=== PATIENT | female | born 1985 | race Caucasian/White ===

== ENCOUNTER → 2016-08-31 | Outpatient (CLI) | payer OTHER ==
[~2016-08-31] MED LIST: CHOL100010 PO; CYM/30 PO; GADAVIST IV PRN; GLUCAGON FOR INJ 1 MG VIAL IM SCH; NURSING VERBAL MED ORDER ONE; SULF800T23 PO; VNTHFA/IN INH
--- NOTE | 2016-08-31 12:48 | DIAGNOSTIC IMAGING REPORT ---
MR ENTEROGRAPHY OF THE ABDOMEN AND PELVIS COMBO CLINICAL HISTORY: Crohn's disease. COMPARISON STUDY: No priors TECHNIQUE: MR enterography of the abdomen and pelvis is performed utilizing various T1 and T2-weighted sequences in the axial and coronal planes. Contrast-enhanced sequences are acquired following the IV administration of 6.5 cc of Gadavist. Dynamic coronal images are processed on an independent [employer] workstation. FINDINGS: Lower chest: No pleural effusion is identified. The heart is normal in size and without pericardial effusion. Liver: The liver is normal in size, contour, and signal intensity. No intrahepatic biliary ductal dilatation is seen. The hepatic veins and portal veins appear patent. Gallbladder: Not identified and presumed surgically absent. Spleen: Normal in size and signal intensity. Pancreas: Unremarkable. Adrenal glands: Normal as visualized. Kidneys: The kidneys are normal in size and without hydronephrosis. Abdominal aorta: Normal in course and caliber. Bowel: Findings suggest a history of ileocecectomy with ileocolic anastomosis. There is a long segment of thick-walled and hyperemic distal ileum located just proximal to the presumed anastomosis. This bowel loop measures at least 10 cm in length. There is productive change in the surrounding mesenteric fat, and diminished peristalsis is seen in this region on the dynamic images. The appearance is consistent with active Crohn's disease. No additional abnormal bowel loops are clearly identified. The remaining small bowel loops appear to peristalse normally. No bowel obstruction is seen. There is no convincing evidence of fistula formation. The perianal soft tissues are normal as imaged. There is no evidence of perianal abscess or fistula. Peritoneum: There is no evidence of abdominal ascites. No organized fluid collection is seen to suggest abscess. Lymphadenopathy: There are prominent mesenteric lymph nodes, likely on a reactive basis. No retroperitoneal adenopathy is seen. Pelvic viscera: The bladder is normal in appearance. A 1.4 cm nodule within the uterine fundus suggests a fibroid. The uterus is otherwise normal as imaged. There are numerous small nabothian cysts. The ovaries are normal as visualized. There is trace free fluid in the cul-de-sac. Skeletal structures: The skeletal structures are normal as imaged. IMPRESSION: 1. Findings suggest a history of ileocecectomy with ileocolic anastomosis. No bowel obstruction is identified. 2. There is an approximately 10 cm segment of thick-walled and hyperemic small bowel involving the distal ileum proximal to the anastomosis. The appearance is typical for active Crohn's disease. 3. There is no evidence of abscess or fistula formation. 4. Trace of nonspecific free fluid is identified in the cul-de-sac, likely within physiologic limits. 5. Suspect a small uterine fibroid. This could be further assessed with ultrasound if clinically warranted. Dictated: 08/31/2016 11:44 AM Transcribed: 08/31/2016 12:47 PM [email or web address] Electronically signed by: Jossue Berrios M.D. 08/31/2016 12:49 PM Dictated Date/Time: 08/31/2016 11:44 AM
== END | disposition home or self-care (01) ==
LOC: C.MRI 09:36
PROVIDERS: ATTEND Nurse Practitioner Family
DX: K50.80 Crohn's disease of both small and large intestine without complications (principal)

== ENCOUNTER 2016-12-15 14:14 | Emergency (ER) | payer OTHER ==
[~2016-12-15] VITALS: Ht 162.6 cm; Wt 66.8 kg
[2016-12-15 14:18] VITALS: BP 132/84; TEMP 36.8; Ht 162.6 cm; Wt 66.8 kg
[2016-12-15] MEDS ORDERED: XYLOCAINE 1%/SOD BICARB 20 ML VIAL INFIL ONE (14:30)
--- NOTE | 2016-12-15 14:31 | EMERGENCY ROOM VISIT NOTE ---
ED Visit Note First contact with patient: 14:21 CHIEF COMPLAINT: Finger injury HISTORY OF PRESENT ILLNESS: This 31-year-old female patient presents to the emergency department ambulatory after injuring the left third finger when she got a splinter in it approximately one week ago. There was no audible snap or crack at that time. The patient rates the pain as sharp and 4/10. The patient is knot able to straighten or flex the finger well and it is painful. No numbness or tingling. No lacerations. No other injuries. The patient has not had previous injury to this finger. The patient saw her family doctor and was started on Augmentin. The patient does take Remicade for Crohn's disease. She states that the swelling and tenderness has worsened. REVIEW OF SYSTEMS: A 6 system review of systems was completed with positives and pertinent negatives in the HPI. ALLERGIES: No known drug allergies MEDICATIONS: See nursing notes PMH: Crohn's disease, bipolar, depression, cholecystectomy, appendectomy SOCIAL HISTORY: The patient lives locally. She is a smoker. PHYSICAL EXAM: Vital Signs: Reviewed Nurse's notes, vital signs stable. GENERAL : This is a 31-year-old female, in no acute distress, but appears to be in pain , well-developed, well-nourished. MUSCULOSKELETAL: There is no deformity of the left third finger. The patient is knot to extend or flex it well because of the pain. There is a healed puncture. There is mild edema on the palmar aspect. Capillary refill less than 2 seconds. No tenderness of the remaining fingers or hand. Full range of motion of the wrist. NEURO: Alert and oriented to person, place, and time. Normal sensation to light and sharp touch. EMERGENCY DEPARTMENT COURSE: I examined the patient. Foreign-body removal was performed. The left third finger was draped in sterile fashion and cleaned with Betadine. 3 ML's of 1% buffered lidocaine were used to infiltrate the area to obtain anesthesia. Once anesthesia was obtained, a #11 blade was used to make a very tiny, less than 0.5 cm incision. I was able to easily identify and remove what appeared to be a wooden splinter that was approximately 2 cm in length. The wound was irrigated with saline and cleaned. A dressing was placed. The patient had a foreign body in the finger that was easily removed as above. There is no significant purulent drainage. There is no significant erythema or warmth. I suspect that her edema was largely related to a foreign body. She is currently taking Augmentin and should continue this. Given the fact that she is immunocompromised and takes a biologic for Crohn's disease, I will also add Bactrim to this regimen. She should return with any worsening symptoms. Otherwise, she should recheck with her family doctor next week. The patient was discharged home in good condition. Current/Historical Medications Scheduled Cholecalciferol (Vitamin D), 2,000 UNITS PO DAILY Duloxetine HCl (Cymbalta), 30 MG PO DAILY Sulfa/Trimethoprim (Bactrim Ds 800MG/160MG), 1 TAB PO BID Scheduled PRN Albuterol Hfa (Ventolin Hfa), 2 PUFFS INH DAILY PRN for SOB/Wheezing Allergies Coded Allergies: No Known Allergies (Unverified , 12/15/16) Vital Signs Date Time Temp Pulse Resp B/P (MAP) Pulse Ox O2 Delivery O2 Flow Rate FiO2 12/15/16 15:39 72 20 99 Room Air 12/15/16 14:18 36.8 77 20 132/84 98 Room Air Departure Information Impression Primary Impression: Foreign body finger Dispostion Home / Self-Care Condition GOOD Prescriptions Sulfa/Trimethoprim (Bactrim Ds 800MG/160MG) Tab 1 TAB PO BID for 7 Days, #14 TAB Prov: Bernice Lima PA-C 12/15/16 Referrals Josee Moyer PA (PCP) Patient Instructions My [facility] Additional Instructions Continue the Augmentin Start the Bactrim as well Keep the area clean and dry and use antibiotic ointment over the next 3-5 days Return with worsening redness, swelling, warmth, fever, drainage of pus
[2016-12-15] MEDS ORDERED: CYM/30 PO (14:43)
[2016-12-15] MEDS ORDERED: CHOL100010 PO (14:43)
[2016-12-15] MEDS ORDERED: VNTHFA/IN INH (14:43)
[2016-12-15] MEDS ORDERED: SULF800T23 PO (14:58)
[2016-12-15 15:39] VITALS: PULSE 72; O2SAT 99
== END 2016-12-15 15:40 | disposition home or self-care (01) ==
LOC: C.EDB 14:16 → C.EDD 15:40
DX: S60.453A Superficial foreign body of left middle finger, initial encounter (principal); X58.XXXA Exposure to other specified factors, initial encounter; F31.9 Bipolar disorder, unspecified; K50.90 Crohn's disease, unspecified, without complications; F17.200 Nicotine dependence, unspecified, uncomplicated